=== PATIENT | male | born 1990 | race Caucasian/White ===

== ENCOUNTER 2025-01-23 12:59 | Emergency (ER) | payer BC, SELFPAY ==
[2025-01-23 13:05] VITALS: BP 116/56
[2025-01-23 13:35] LABS: Hematocrit 37.7 % (39.0-52.0); Hemoglobin 12.9 g/dL (13.0-18.0); Mean Corp Hgb Conc. 34.2 g/dL (33.0-37.0); Mean Corpuscular Volume 87.9 fL (80.0-94.0); Nucleated Red Blood Cells % 0 % (-); Platelet Count 319 10^3/uL (130-400); Red Cell Dist. Width 12.5 % (11.5-14.5)
[2025-01-23 14:00] LABS: Troponin I 0.016 ng/ml
[2025-01-23 14:07] LABS: ALT (SGPT) 19 U/L (0-50); AST (SGOT) 23 U/L (17-59); Albumin 4.2 g/dl (3.5-5.0); Alkaline Phosphatase 63 U/L (38-126); Blood Urea Nitrogen 18 mg/dl (9-20); Calcium 9.1 mg/dl (8.4-10.2); Carbon Dioxide 27 mmol/L (22-30); Chloride 106 mmol/L (98-107); Glucose 106 mg/dl (70-99); Potassium 4.5 mmol/L (3.5-5.1); Sodium 136 mmol/L (135-145); Total Protein 7.0 g/dl (6.3-8.2); eGFR > 60.00
--- NOTE | 2025-01-23 17:06 | ED.GENMED ---
History of Present Illness
General
Chief Complaint: Chest Pain
Source: patient
Time Seen by Provider: 01/23/25 16:50
History of Present Illness
History of Present Illness:
34-year-old male with no significant past medical history presents emergency department for evaluation after he has been experiencing some left-sided chest discomfort for the last 3 days or so, constant, worse with movement and palpation as well as
deep inspiration but no other associated symptoms. Patient denies any cough, fevers, shortness of breath, palpitations, diaphoresis, exertional dyspnea, orthopnea, hemoptysis, lower extremity edema. He denies any recent travel. Family history
noncontributory. Social history negative for any cigarettes or tobacco use. Patient did go to urgent care earlier today and was concerned because the printout of the EKG reported he had a right bundle branch block.
Past History
Past History
ED Past Medical History: None
ED Past Surgical History: Appendectomy
Social History
Tobacco: Non-smoker
Alcohol: Occasional
Drug: None
Personal: Single
Living: with family
Employment: Employed
Review of Systems
Review of Systems
All Other Systems: ROS reviewed and negative except as documented in HPI and ROS
Phy Exam
Physical Exam
Physical Exam:
GENERAL: Alert , in no apparent distress
HEAD: Normocephalic atraumatic
EYE: conjunctiva clear
NECK: Supple
ENT: o/p clr, mmm.
CARDIAC: Regular rate and rhythm
LUNGS: Clear breath sounds bilaterally, no acute respiratory distress, no wheezes/rales/rhonchi
CHEST WALL: Clearly reproducible tenderness over the left pectoral region
NEUROLOGICAL: Alert and oriented
SKIN: Warm and dry, skin intact.
MUSCULOSKELETAL: well perfused.
PSYCH: Normal and appropriate interaction.
Scores
Heart Failure Risk
Heart Failure Risk Score: Not Applicable
Heart Score for Chest Pain Patients
STEMI patient?: No
History: Slightly or Non-Suspicious
ECG: Normal
Age: </= 45 years
Risk Factors: No Risk Factors
Troponin: </= Normal Limit
Heart Score for Chest Pain Patients: 0
Heart Score Risk: 2.5% MACE over next 6 weeks
Withdrawal Assessment of Alcohol
Withdrawal Assessment Completed?: Not applicable
Course
Orders/Labs/Results
Orders:
Orders
01/23/25 13:00
Electrocardiogram (*1) Urgent
Reason for Study: Chest Pain
EKG- Treatment ONCE
01/23/25 13:24
Complete Blood Count/With Diff Urgent
Comprehensive Metabolic Panel Urgent
Troponin I Urgent
01/23/25 17:05
Ibuprofen [Motrin] 600 mg PO NOW STA
01/23/25 17:08
Troponin I Urgent
01/23/25 17:09
D-Dimer Urgent
01/23/25 17:43
CR Chest - 2 Views Urgent
Comment:
Reason For Exam: left sided chest pain
Abnormal Lab Results
01/23/25
13:24
RBC 4.29 L 10^6/uL
(4.70-6.10)
Hgb 12.9 L g/dL
(13.0-18.0)
Hct 37.7 L %
(39.0-52.0)
Absolute Monos (auto) 0.7 H 10^3/uL
(0.1-0.6)
Glucose 106 H mg/dl
(70-99)
01/23/25 13:24
01/23/25 13:24
Vital Signs
Initial and Last Documented VS:
Initial Vital Signs
Temp Pulse Resp BP Pulse Ox
97.6 F 60 16 116/56 97
01/23/25 13:05 01/23/25 13:05 01/23/25 13:05 01/23/25 13:05 01/23/25 13:05
Last Documented Vital Signs
Temp Pulse Resp BP Pulse Ox
97.6 F 60 16 116/56 99
01/23/25 13:05 01/23/25 13:05 01/23/25 13:05 01/23/25 13:05 01/23/25 17:12
MDM/Problems Addressed
Differential Diagnosis Includes:
Pleurisy
Costochondritis
Muscle strain
ACS
PE
Pericarditis/Myocarditis
PTX
MDM/Problems Addressed:
34-year-old male presenting to the ER for eval ration at the request of urgent care for evaluation of left-sided chest discomfort. Symptoms seem to be clearly reproducible with palpation and movements making a muscular etiology much more likely.
Workup thus far is unremarkable. EKG is a sinus rhythm, incomplete right bundle branch block noted. Will check a 3-hour troponin as well as a D-dimer given the neuritic nature of the pain as well. Disposition pending
*Radiology
Radiology exam reviewed: preliminary read by ED provider (normal CXR)
*Pulse Oximetry
SaO2: 97
Oxygen Mode of Delivery: Room air
Patient hypoxic: no
*EKG
Heart Rate: 55
Rate: bradycardiac
Rhythm: sinus
QRS Pattern: right bundle branch block
*Critical Care Note
Total Time (30-74mins, 75-104mins- exclusive of procedures): Not Applicable
Patient Management
Escalation/DeEscalation of care consider admission/obs:
Work up unremarkable. Patient stable for d/c home. Aware of return precautions. NSAIDs prn 5-7 days for pain
ED Attending Note
-
Portions of this chart may have been created with voice recognition software.� Occasional wrong word or��sound alike� substitutions may have occurred due to the inherent limitations of voice recognition software.
Discharge Plan
Departure
Patient Disposition: Home (Routine Discharge)
Date of Disposition: 01/23/25
Time of Disposition: 18:32
Patient with high blood pressure during this ER visit?: No
Discharge Problem:
Chest wall pain
Instructions: Chest Pain That Is Not Caused by the Heart (DC)
Referrals:
NONE,* [Family Provider, Internal Medicine]
Interventions
Interventions:
*General Assessment Last Done: 01/23/25 13:09
*Neglect/Abuse Screening Last Done: 01/23/25 13:09
*ED COVID-19 Vaccine History Last Done: 01/23/25 13:09
*ED Influenza Vaccine History Last Done: 01/23/25 13:09
*Risk Screen - Suicide (C-SSRS) Last Done: 01/23/25 13:09
ED- Cardiac Assessment Last Done: 01/23/25 17:12
Discharge Date and Time
Print Language: UKRAINIAN
[2025-01-23] MEDS: MOTRIN 600 MG PO (17:10)
[2025-01-23 17:37] LABS: D-Dimer 0.46 ug/mlFEU (0.00-0.50)
[2025-01-23 17:42] LABS: Troponin I < 0.012 ng/ml
[2025-01-23 18:00] VITALS: BP 124/71
== END 2025-01-23 18:58 | disposition home or self-care (01) ==
LOC: EMR 12:59
PROVIDERS: Emergency Medicine; Physician Assistant Medical; EMERGENCY PHYSICIAN Student in an Organized Health Care Education/Training Program
DX: R07.89 Other chest pain (principal); I45.10 Unspecified right bundle-branch block; Z90.49 Acquired absence of other specified parts of digestive tract
CPT/HCPCS: 99283; 71046; 80053; 84484; 85025; 85379; 93005